=== PATIENT | female | born 1965 | race Hispanic/Latino ===

== ENCOUNTER 2024-01-26 23:48 | Emergency (ER) | payer SELFPAY | END 2024-01-27 00:19 | disposition home or self-care (01) | LOC: NAV ERS 23:48 | DX: K62.5 Hemorrhage of anus and rectum (principal); K60.2 Anal fissure, unspecified; I10 Essential (primary) hypertension; E11.9 Type 2 diabetes mellitus without complications; Z79.899 Other long term (current) drug therapy | CPT/HCPCS: 99283 ==